=== PATIENT | female | born 2000 | race Caucasian/White ===

== ENCOUNTER 2021-08-17 18:01 | Emergency (ER) | payer SELFPAY ==
[~2021-08-17] VITALS: Ht 175.3 cm; Wt 61.7 kg
[2021-08-17 18:06] VITALS: BP 138/89
--- NOTE | 2021-08-17 22:02 | NUR ---
call for patient no answer at this time
--- NOTE | 2021-08-17 22:23 | NUR ---
called patient no answer at this time
--- NOTE | 2021-08-17 22:23 | NUR ---
PATIENT LEFT WITHOUT BEING SEEN BY DR. MEJIAS. NO FURTHER CARE PROVIDED FOR PATIENT.
== END 2021-08-17 22:23 | disposition left against medical advice (07) ==
LOC: MED 18:01
DX: M79.604 Pain in right leg (principal); Z53.21 Procedure and treatment not carried out due to patient leaving prior to being seen by health care provider
CPT/HCPCS: 81002; 99283